=== PATIENT | female | born 1995 | race Caucasian/White ===

== ENCOUNTER 2019-09-01 13:53 | Emergency (ER) | payer SELFPAY ==
--- NOTE | 2019-09-01 14:14 | ER Document Report ---
ED Medical Screen (RME) - General Chief Complaint: Abscess Stated Complaint: ABSCESS Time Seen by Provider: 09/01/19 14:09 Mode of Arrival: Ambulatory Information source: Patient Notes: 23-year-old female presents to ED for a cyst that she removed from her face at home. She now has a large gaping wound to her face. Patient is alert oriented respirations regular nonlabored speaking in full sentences. She states she has cystic acne and she cut this open and pulled the cyst out herself at home. She now has an inflamed area to the right side of her face. I have greeted and performed a rapid initial assessment of this patient. A comprehensive ED assessment and evaluation of the patient, analysis of test results and completion of medical decision making process will be conducted by an additional ED providers. Physical Exam - Vital signs Vitals: Temp Pulse Resp BP Pulse Ox 99.6 F 121 H 17 133/69 H 98 09/01/19 14:01 09/01/19 14:01 09/01/19 14:01 09/01/19 14:01 09/01/19 14:01 Course - Vital Signs Vital signs: Temp Pulse Resp BP Pulse Ox 99.6 F 121 H 17 133/69 H 98 09/01/19 14:01 09/01/19 14:01 09/01/19 14:01 09/01/19 14:01 09/01/19 14:01
[2019-09-01 14:45] LABS: ABSOLUTE BASOPHILS # (AUTO) 0.1 10^3/uL (0.0-0.2); ABSOLUTE LYMPHOCYTES (AUTO) 1.9 10^3/uL (0.5-4.7); ABSOLUTE MONOCYTES (AUTO) 0.9 10^3/uL (0.1-1.4); ABSOLUTE NEUT (AUTO) 10.2 10^3/uL (1.7-8.2); BASOPHILS % (AUTO) 0.4 % (0-2); EOSINOPHILS % (AUTO) 0.1 % (0-6); HEMATOCRIT 41.3 % (36.0-47.0); HEMOGLOBIN 14.1 g/dL (12.0-15.5); LYMPHOCYTES % (AUTO) 14.4 % (13-45); MEAN CORPUSCULAR HEMOGLOBIN 30.4 pg (27.0-33.4); MEAN CORPUSCULAR HGB CONC 34.2 g/dL (32.0-36.0); MEAN CORPUSCULAR VOLUME 89 fl (80-97); MONOCYTES % (AUTO) 6.6 % (3-13); PLATELET COUNT 289 10^3/uL (150-450); RED BLOOD COUNT 4.66 10^6/uL (3.72-5.28); RED CELL DISTRIBUTION WIDTH 12.8 % (11.5-14.0); SEGMENTED NEUTROPHILS % (AUTO) 78.5 % (42-78); TOTAL CELLS COUNTED % (AUTO) 100 %
[2019-09-01 15:02] LABS: ALBUMIN 5.2 g/dL (3.5-5.0); ALKALINE PHOSPHATASE 72 U/L (38-126); ANION GAP 7 (5-19); ASPARTATE AMINO TRANSFERASE 43 U/L (14-36); BILIRUBIN,TOTAL 0.9 mg/dL (0.2-1.3); BLOOD UREA NITROGEN 14 mg/dL (7-20); CALCIUM 10.2 mg/dL (8.4-10.2); CARBON DIOXIDE 27 mmol/L (22-30); CHLORIDE 102 mmol/L (98-107); GLUCOSE 110 mg/dL (75-110); POTASSIUM 4.5 mmol/L (3.6-5.0); TOTAL PROTEIN 8.1 g/dL (6.3-8.2)
--- NOTE | 2019-09-01 15:22 | ER Document Report ---
Entered by FRANCISCO VELASQUEZ SCRIBE 09/01/19 1458 Acting as scribe for:YVONNE KHAN MD ED Skin Rash/Insect Bite/Abscs - General Chief Complaint: Skin Problem Stated Complaint: ABSCESS Time Seen by Provider: 09/01/19 14:09 Mode of Arrival: Ambulatory Information source: Patient Notes: This 23 year old female patient presents to the emergency department today with complaints of a wound to the right cheek. She states that she has an extensive history with cystic acne and she had one area in particular on her right cheek that had been getting increasingly painful and swollen over the last few months. Patient states she cut out this cyst with an exacto knife prior to arrival. Patient has a gaping, cored out wound to her right cheek. - Related Data Allergies/Adverse Reactions: No Known Allergies Allergy (Verified 09/01/19 15:02) Past Medical History - General Information source: Patient - Social History Smoking Status: Never Smoker Cigarette use (# per day): No Frequency of alcohol use: None Drug Abuse: None Lives with: Family Family History: Reviewed & Not Pertinent Patient has homicidal ideation: No - Medical History Medical History: Negative Surgical Hx: Negative Review of Systems - Review of Systems Constitutional: No symptoms reported EENT: No symptoms reported Cardiovascular: No symptoms reported Respiratory: No symptoms reported Gastrointestinal: No symptoms reported Genitourinary: No symptoms reported Female Genitourinary: No symptoms reported Musculoskeletal: No symptoms reported Skin: See HPI, Lesions Hematologic/Lymphatic: No symptoms reported Neurological/Psychological: No symptoms reported -: Yes All other systems reviewed and negative Physical Exam - Vital signs Vitals: Temp Pulse Resp BP Pulse Ox 99.6 F 121 H 17 133/69 H 98 09/01/19 14:01 09/01/19 14:01 09/01/19 14:01 09/01/19 14:01 09/01/19 14:01 - Notes Notes: Physical Exam: General: Alert, appears well. HEENT: Normocephalic. Atraumatic. PERRL. Extraocular movements intact. Oropharynx clear. Neck: Supple. Non-tender. Respiratory: No respiratory distress. Clear and equal breath sounds bilaterally. Cardiovascular: Regular rate and rhythm. Abdominal: Normal Inspection. Non-tender. No distension. Normal Bowel Sounds. Back: No gross abnormalities. Extremities: Moves all four extremities. Upper extremities: Normal inspection. Normal ROM. Lower extremities: Normal inspection. No edema. Normal ROM. Neurological: Normal cognition. AAOx4. Normal speech. Psychological: Normal affect. Normal Mood. Skin: Cystic acne on face. Round open wound to right cheek measuring 1cm across, does not communicate with mouth. Course - Re-evaluation Re-evalutation: 09/01/19 15:44 The patient was given a pack of sterile 2 x 2's and sterile saline in order to do her own saline wet-to-dry dressings at home. The nurse demonstrated to her how to do the saline wet gauze packing with dry overlying dressing. - Vital Signs Vital signs: Temp Pulse Resp BP Pulse Ox 98.6 F 106 H 18 145/74 H 100 09/01/19 15:29 09/01/19 15:29 09/01/19 15:29 09/01/19 15:29 09/01/19 15:29 - Laboratory Result Diagrams: 09/01/19 14:26 09/01/19 14:26 Laboratory results interpreted by me: 09/01/19 09/01/19 09/01/19 14:26 14:26 15:26 WBC 13.0 H Absolute Neuts (auto) 10.2 H Seg Neutrophils % 78.5 H Sodium 135.9 L AST 43 H Albumin 5.2 H Urine Protein 30 H Urine Ketones TRACE H Urine Blood MODERATE H Urine Urobilinogen 2.0 H Ur Leukocyte Esterase SMALL H Discharge - Discharge Clinical Impression: Cystic acne Facial laceration Qualifiers: Encounter type: initial encounter Qualified Code(s): S01.81XA - Laceration without foreign body of other part of head, initial encounter Condition: Stable Disposition: HOME, SELF-CARE Additional Instructions: Abscess You did have an infected cyst or possibly an abscess (boil) on your face. From the time the tender lump first appears, it may be three or four days before the abscess is ready to rios. Local heat and rest help at this stage of treatment. An antibiotic may prevent spread of the infection. Once the abscess is opened, packing may be placed into it. This is done so pus is not sealed inside by premature closure of the cavity. Sometimes this packing must be replaced a few times during healing. Antibiotics may be prescribed, but are usually not necessary after an abscess has been drained. If you develop fever, chilling, worsening pain, or increasing swelling in the area, call the doctor or return immediately. Take the medication as prescribed. Pack the wound with saline soaked gauze, and then place dry gauze and tape over the wound. The wound should granulate and fill-in from the inside out. Follow-up with [facility] if not improving. RETURN TO THE EMERGENCY ROOM IF ANY NEW OR WORSENING SYMPTOMS. Prescriptions: Cephalexin Monohydrate [Keflex 500 mg Capsule] 500 mg PO QID #28 capsule I personally performed the services described in the documentation, reviewed and edited the documentation which was dictated to the scribe in my presence, and it accurately records my words and actions.
[2019-09-01 15:31] VITALS: BP 145/74
[2019-09-01 15:41] LABS: APPEARANCE,URINE SLIGHTLY-CLOUDY; BILIRUBIN,URINE NEGATIVE (NEGATIVE); COLOR,URINE AMBER; GLUCOSE, URINE NEGATIVE (NEGATIVE); KETONES,URINE TRACE mg/dL (NEGATIVE); LEUKOCYTE ESTERASE,URINE SMALL (NEGATIVE); NITRITE,URINE NEGATIVE (NEGATIVE); PROTEIN,URINE 30 mg/dL (NEGATIVE); URINE SPECIFIC GRAVITY 1.028
[2019-09-01 15:53] LABS: URINE BARBITURATES SCREEN NEGATIVE; URINE COCAINE SCREEN NEGATIVE; URINE METHADONE SCREEN NEGATIVE; URINE PHENCYCLIDINE SCREEN NEGATIVE
[2019-09-01 15:54] LABS: URINE AMPHETAMINES SCREEN UNCONFIRMED POSITIVE; URINE BENZODIAZEPINES SCREEN UNCONFIRMED POSITIVE; URINE MARIJUANA (THC) SCREEN UNCONFIRMED POSITIVE
== END 2019-09-01 15:25 | disposition home or self-care (01) ==
LOC: ER 13:53
DX: L70.0 Acne vulgaris (principal); S01.411A Laceration without foreign body of right cheek and temporomandibular area, initial encounter; W26.0XXA Contact with knife, initial encounter; Y93.89 Activity, other specified
CPT/HCPCS: 36415; 80053; 80307; 81001; 84703; 85025; 99282